=== PATIENT | male | born 1960 | race Caucasian/White ===

== ENCOUNTER 2016-08-27 19:29 | Inpatient (IN) | payer BC ==
--- NOTE | ~2016-08-27 | CN ---
Consultation Report [place] [id number] [facility] [place]. [address] NAME: ED WATT : 60 STATUS : ADM Poornima PAT#: [id number] AGE: 56 ADM/REG DATE : 08/27/16 MR#: [id number] REPORT SERV DATE: 08/28/16 DICTATED BY: FRANKLIN SANTIAGO DATE: 08/28/16 REPORT STATUS : Draft TRANSCRIBED BY: MODL DATE: 08/28/16 CARDIOLOGY CONSULT DATE OF CONSULTATION: INDICATION: Liy-AB-htzdnzpoz NH. HISTORY OF PRESENT ILLNESS: Mr. Watt is a 56-year-old male who is being admitted by the Hospitalist Service for chest pain and shortness of breath with an abnormal troponin, suggestive of ACS/non-STEMI. He has a history of COPD, ongoing tobacco use, hepatitis C virus, and is disabled due to chronic back pain. He has had several instances in the past of anginal-type chest pain with a precordial tightness described as a "bandlike" chest discomfort. This is associated with dyspnea and some stabbing back pain. This is very different than his chronic pain. Previous ER evaluations have been unremarkable with symptoms resolved with treatment of COPD. At this time symptoms have ultimately resolved with sublingual nitroglycerin. Initial ECG was unremarkable. His initial troponin was 0.09 and has trended up to 0.6. He is now resting comfortably with no recurrent chest pain. He has had no palpitations or syncope. He denies orthopnea or edema. REVIEW OF SYSTEMS: Pertinent positives and negatives are as outlined above, all else negative. PAST MEDICAL HISTORY: 1. COPD. 2. Tobacco use. 3. Chronic pain, disabled. FAMILY HISTORY: 1. Ischemic heart disease. 2. Hepatitis C virus. CURRENT HOME MEDICATIONS: 1. Celexa 40 mg daily. 2. Katrina 60 mg every 12 hours. 3. Percocet p.r.n. ALLERGIES: TORADOL WITH RASH AND PENICILLIN WITH RASH. SOCIAL HISTORY: Mr. Watt is disabled with chronic back pain. He has ongoing tobacco use at one-half pack per day. He does not consume alcohol or illegal drugs. FAMILY HISTORY: Significant for CAD. PHYSICAL EXAMINATION: Consultation Report [address] [place]. [address] NAME: ED WATT : 60 STATUS : ADM Poornima PAT#: [id number] AGE: 56 ADM/REG DATE : 08/27/16 MR#: [id number] REPORT SERV DATE: 08/28/16 DICTATED BY: FRANKLIN SANTIAGO DATE: 08/28/16 REPORT STATUS : Draft TRANSCRIBED BY: EARNEST DATE: 08/28/16 VITALS: Temperature is 98.1, pulse 67, respirations 16, blood pressure 110/70. MENTAL STATUS: Awake, alert, and oriented x3. PSYCH: Euthymic, normal affect. GENERAL: Well appearing and in no distress. HEENT: Sclerae anicteric, mucous membranes moist and without lesions. NECK: No jugular venous distention. No hepatojugular reflux, carotid upstrokes 2+ and symmetric, there are no carotid or subclavian bruit. LUNGS: Clear to auscultation without wheezes, crackles, or rales. CARDIOVASCULAR: Regular with normal S1 and S2, no murmurs, no S3 or S4, no parasternal lift, PMI is nondisplaced and nonsustained. ABDOMEN: Soft and nontender. Bowel sounds positive and normoactive. No hepatomegaly, no masses, no abdominal bruit. PULSES: Radial and dorsalis pedis pulses 2+ and symmetric. EXTREMITIES: Warm and without edema. SKIN: No clubbing or cyanosis, no rashes or lesions. ACCESSORY DATA: Creatinine is 1. BUN 6. Otherwise normal electrolytes. CBC with normal white count, hematocrit 41, platelet count 248. Troponin 0.6 and trending up. TSH normal at 0.5. ECG shows sinus rhythm with no acute ST-T abnormalities. IMPRESSION: 1. Acute coronary syndrome/udw-QC-puwuinkgo myocardial infarction. 2. Chronic obstructive pulmonary disease. 3. Tobacco use, ongoing. 4. Chronic pain, disabled. 5. Family history of ischemic heart disease. 6. Hepatitis C virus. PLAN: Mr. Watt has presentation suggestive of acute coronary syndrome and tkj-HL-akshuovhe NH. He will be kept n.p.o. after midnight for coronary angiography and possible PCI tomorrow. Medical therapy with carvedilol, statin, and aspirin will be initiated. He will start IV heparin drip, no initial bolus as he did receive subcutaneous Lovenox today for DVT prophylaxis which will be discontinued. CONSENT: Risks and benefits of cardiac catheterization were discussed with Mr. Watt today. Risks and benefits include bleeding, infection, vascular access, trauma, allergic reaction to contrast dye, and a 1% chance of major complications such as heart attack and stroke were all covered. After this, informed consent was obtained and he agreed to proceed. CIRILO/EARNEST Franklin Santiago M.D. Consultation Report [address] [address] NAME: ED WATT : 60 STATUS : ADM Poornima PAT#: [id number] AGE: 56 ADM/REG DATE : 08/27/16 MR#: [id number] REPORT SERV DATE: 08/28/16 DICTATED BY: FRANKLIN SANTIAGO DATE: 08/28/16 REPORT STATUS : Draft TRANSCRIBED BY: EARNEST DATE: 08/28/16 / [id number] CC: MD Franklin Dodd M.D.
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
[~2016-08-27 19:29] MED LIST: *DENIES; ASAB PO; CYMBALTA60 PO; KADIANSR30 PO; NEXIUM40 PO; PCET PO; PERCOCET1 TA4 PO; PR25 PO; PT DENIES ANY MEDS; ULTRAM50 PO
[2016-08-27 20:24] LABS: BASOPHILS 0.1 %; BASOPHILS ABSOLUTE 0.01 10/3/uL (0.0-0.16); EOSINOPHILS 2.8 %; EOSINOPHILS ABSOLUTE 0.26 10/3/uL (0.0-0.53); ER CBC TAT 0 Hrs 07 Mins; HEMATOCRIT 41.5 % (40.0-51.0); HEMOGLOBIN 14.7 g/dL (13.6-17.8); IMMATURE GRANULOCYTES 0.1 %; IMMATURE GRANULOCYTES ABSOLUTE 0.01 10/3/uL (0.0-0.11); LYMPHOCYTES 27.2 %; LYMPHOCYTES ABSOLUTE 2.55 10/3/uL (0.67-4.30); MEAN CORPUS HGB CONC 35.4 g/dL (32.0-36.0); MEAN CORPUSCULAR HEMOGLOB 30.9 pg (26.0-34.0); MEAN CORPUSCULAR VOLUME 87.4 fL (80-100); MEAN PLATELET VOLUME 10.9 fL (9.2-13.0); MONOCYTES 6.9 %; MONOCYTES ABSOLUTE 0.65 10/3/uL (0.21-1.20); NEUTROPHILS 62.9 %; NEUTROPHILS ABSOLUTE 5.89 10/3/uL (2.02-8.40); PLATELET COUNT 257 10/3/uL (150-400); RBC DISTRIBUTION WIDTH 13.8 % (12.0-16.0); RED CELL COUNT 4.75 10/6/uL (4.7-6.1); WHITE BLOOD CELLS 9.4 10/3/uL (4.5-10.5)
[2016-08-27 20:25] LABS: MANUAL DIFF NO %
[2016-08-27 20:32] LABS: PARTIAL THROMBO TIME 29.2 SEC (22.5-37.2); PROTIME (NOT ORD) 13.5 SEC (12.0-14.5)
[2016-08-27 20:42] LABS: BUN (BLOOD UREA NITROGEN) 5 MG/DL (6-23); CALCIUM, SERUM 9.1 MG/DL (8.5-10.4); CHLORIDE, SERUM 97 MMOL/L (96-112); CO2 (CARBON DIOXIDE) 29 MMOL/L (24-34); CREATININE 0.93 MG/DL (0.70-1.30); GFR AFRICAN AMERICAN 106 ML/MIN (>=60); GFR NON AFRICAN AMERICAN 91 ML/MIN (>=60); GLUCOSE, SERUM 94 MG/DL (60-99); POTASSIUM, SERUM 3.8 MMOL/L (3.5-5.3); SODIUM, SERUM 136 MMOL/L (135-148)
[2016-08-27 20:45] LABS: CHEST PAIN PROFILE TAT 0 Hrs 21 Mins; TROPONIN I 0.09 NG/ML (<0.05)
[2016-08-27] MEDS ORDERED: KADIAN60 MG PO ×2 (21:44→21:46)
[2016-08-27] MEDS ORDERED: PERCOCET 10/3251 TAB PO (21:45)
[2016-08-27] MEDS ORDERED: CELEXA40 MG PO (21:46)
[2016-08-28 05:00] LABS: BASOPHILS 0 %; EOSINOPHILS 0 %; HEMATOCRIT 40.9 % (40.0-51.0); HEMOGLOBIN 14.4 g/dL (13.6-17.8); LYMPHOCYTES 9.8 %; LYMPHOCYTES ABSOLUTE 0.74 10/3/uL (0.67-4.30); MEAN CORPUS HGB CONC 35.2 g/dL (32.0-36.0); MEAN CORPUSCULAR HEMOGLOB 30.8 pg (26.0-34.0); MEAN CORPUSCULAR VOLUME 87.4 fL (80-100); MONOCYTES 0.4 %; MONOCYTES ABSOLUTE 0.03 10/3/uL (0.21-1.20); NEUTROPHILS 89.8 %; NEUTROPHILS ABSOLUTE 6.78 10/3/uL (2.02-8.40); PLATELET COUNT 248 10/3/uL (150-400); RBC DISTRIBUTION WIDTH 13.9 % (12.0-16.0); RED CELL COUNT 4.68 10/6/uL (4.7-6.1); WHITE BLOOD CELLS 7.6 10/3/uL (4.5-10.5)
[2016-08-28 05:01] LABS: MANUAL DIFF NO %
[2016-08-28 05:04] LABS: INTERNATIONAL NORMAL RATI 1.1 UNITS (-); PROTIME (NOT ORD) 13.7 SEC (12.0-14.5)
[2016-08-28 05:23] LABS: BUN (BLOOD UREA NITROGEN) 6 MG/DL (6-23); CALCIUM, SERUM 8.8 MG/DL (8.5-10.4); CHLORIDE, SERUM 98 MMOL/L (96-112); CO2 (CARBON DIOXIDE) 26 MMOL/L (24-34); CREATININE 0.99 MG/DL (0.70-1.30); GFR AFRICAN AMERICAN 98 ML/MIN (>=60); GFR NON AFRICAN AMERICAN 85 ML/MIN (>=60); POTASSIUM, SERUM 3.8 MMOL/L (3.5-5.3); SGOT(AST) 29 U/L (5-40); SGPT(ALT) 37 U/L (5-65); SODIUM, SERUM 137 MMOL/L (135-148); TOTAL BILIRUBIN 0.3 MG/DL (0-1.2); TOTAL PROTEIN 7.1 G/DL (6.0-8.5); ULTRASENSITIVE TSH 0.544 MCIU/ML (0.358-3.740)
[2016-08-28 05:25] LABS: ALBUMIN 3.6 G/DL (3.5-5.0); ALKALINE PHOSPHATASE 75 U/L (45-117); GLOBULIN 3.5 G/DL (2.5-4.1); GLUCOSE, SERUM 152 MG/DL (60-99); TROPONIN I 0.58 NG/ML (<0.05)
[2016-08-29 02:11] LABS: BASOPHILS 0 %; EOSINOPHILS 0 %; HEMATOCRIT 38.2 % (40.0-51.0); HEMOGLOBIN 13.5 g/dL (13.6-17.8); IMMATURE GRANULOCYTES 0.3 %; IMMATURE GRANULOCYTES ABSOLUTE 0.06 10/3/uL (0.0-0.11); LYMPHOCYTES 6.3 %; LYMPHOCYTES ABSOLUTE 1.37 10/3/uL (0.67-4.30); MEAN CORPUS HGB CONC 35.3 g/dL (32.0-36.0); MEAN CORPUSCULAR VOLUME 87.6 fL (80-100); MEAN PLATELET VOLUME 10.8 fL (9.2-13.0); MONOCYTES 3.1 %; MONOCYTES ABSOLUTE 0.67 10/3/uL (0.21-1.20); NEUTROPHILS 90.3 %; NEUTROPHILS ABSOLUTE 19.76 10/3/uL (2.02-8.40); PLATELET COUNT 234 10/3/uL (150-400); RBC DISTRIBUTION WIDTH 13.8 % (12.0-16.0); RED CELL COUNT 4.36 10/6/uL (4.7-6.1)
[2016-08-29 02:18] LABS: MANUAL DIFF NO %; WHITE BLOOD CELLS 21.9 10/3/uL (4.5-10.5)
[2016-08-29 02:34] LABS: INTERNATIONAL NORMAL RATI 1.2 UNITS (-); PROTIME (NOT ORD) 15.5 SEC (12.0-14.5)
[2016-08-29 02:57] LABS: BUN (BLOOD UREA NITROGEN) 9 MG/DL (6-23); CALCIUM, SERUM 8.9 MG/DL (8.5-10.4); CHLORIDE, SERUM 98 MMOL/L (96-112); CHOLESTEROL 182 MG/DL (< 200); CO2 (CARBON DIOXIDE) 26 MMOL/L (24-34); CREATININE 0.91 MG/DL (0.70-1.30); GFR AFRICAN AMERICAN 109 ML/MIN (>=60); GFR NON AFRICAN AMERICAN 94 ML/MIN (>=60); GLUCOSE, SERUM 136 MG/DL (60-99); HDL CHOLESTEROL 46 MG/DL (> 39); NON-HDL CHOLESTEROL 136 MG/DL (< 160); POTASSIUM, SERUM 4.3 MMOL/L (3.5-5.3); SODIUM, SERUM 135 MMOL/L (135-148)
[2016-08-29 02:59] LABS: CK-MB 3.5 NG/ML; CPK 158 U/L (0-200); LDL CHOLESTEROL 116 MG/DL (< 130); TRIGLYCERIDE 101 MG/DL (< 150); TROPONIN I 0.38 NG/ML (<0.05)
[2016-08-29 11:51] LABS: CPK 157 U/L (0-200)
[2016-08-29 11:52] LABS: CK-MB 3.5 NG/ML
[2016-08-30 04:47] LABS: BASOPHILS 0.1 %; BASOPHILS ABSOLUTE 0.01 10/3/uL (0.0-0.16); EOSINOPHILS 0 %; HEMOGLOBIN 14.2 g/dL (13.6-17.8); IMMATURE GRANULOCYTES 0.3 %; IMMATURE GRANULOCYTES ABSOLUTE 0.06 10/3/uL (0.0-0.11); LYMPHOCYTES 11.5 %; LYMPHOCYTES ABSOLUTE 2.01 10/3/uL (0.67-4.30); MEAN CORPUS HGB CONC 34.6 g/dL (32.0-36.0); MEAN CORPUSCULAR HEMOGLOB 30.6 pg (26.0-34.0); MEAN CORPUSCULAR VOLUME 88.4 fL (80-100); MEAN PLATELET VOLUME 11.1 fL (9.2-13.0); MONOCYTES 4.5 %; MONOCYTES ABSOLUTE 0.79 10/3/uL (0.21-1.20); NEUTROPHILS 83.6 %; NEUTROPHILS ABSOLUTE 14.65 10/3/uL (2.02-8.40); PLATELET COUNT 238 10/3/uL (150-400); RBC DISTRIBUTION WIDTH 14.1 % (12.0-16.0); RED CELL COUNT 4.64 10/6/uL (4.7-6.1); WHITE BLOOD CELLS 17.5 10/3/uL (4.5-10.5)
[2016-08-30 04:48] LABS: MANUAL DIFF NO %
[2016-08-30 05:07] LABS: BUN (BLOOD UREA NITROGEN) 9 MG/DL (6-23); CALCIUM, SERUM 8.8 MG/DL (8.5-10.4); CHLORIDE, SERUM 98 MMOL/L (96-112); CK-MB 55.9 NG/ML; CO2 (CARBON DIOXIDE) 28 MMOL/L (24-34); CPK 591 U/L (0-200); CREATININE 0.99 MG/DL (0.70-1.30); GFR AFRICAN AMERICAN 98 ML/MIN (>=60); GFR NON AFRICAN AMERICAN 85 ML/MIN (>=60); HDL CHOLESTEROL 44 MG/DL (> 39); SODIUM, SERUM 135 MMOL/L (135-148)
[2016-08-30 05:10] LABS: CHOL/HDL RATIO(NOT ORDER) 3.3 (0-5); CHOLESTEROL 143 MG/DL (< 200); CKMB INDEX (NOT ORD) 9.5; GLUCOSE, SERUM 99 MG/DL (60-99); LDL CHOLESTEROL 70 MG/DL (< 130); NON-HDL CHOLESTEROL 99 MG/DL (< 160); TRIGLYCERIDE 145 MG/DL (< 150)
[2016-08-30 06:53] LABS: PROCALCITONIN <0.05 ng/mL (<0.5)
[2016-08-30 08:58] LABS: CK-MB 38.6 NG/ML
[2016-08-30 09:00] LABS: CKMB INDEX (NOT ORD) 7.6; TROPONIN I 12.6 NG/ML (<0.05)
[2016-08-31 11:48] LABS: BASOPHILS 0.1 %; BASOPHILS ABSOLUTE 0.01 10/3/uL (0.0-0.16); EOSINOPHILS 0.3 %; EOSINOPHILS ABSOLUTE 0.04 10/3/uL (0.0-0.53); HEMATOCRIT 39.1 % (40.0-51.0); HEMOGLOBIN 13.9 g/dL (13.6-17.8); IMMATURE GRANULOCYTES 0.3 %; IMMATURE GRANULOCYTES ABSOLUTE 0.04 10/3/uL (0.0-0.11); LYMPHOCYTES 13.9 %; MEAN CORPUS HGB CONC 35.5 g/dL (32.0-36.0); MEAN CORPUSCULAR HEMOGLOB 30.8 pg (26.0-34.0); MEAN CORPUSCULAR VOLUME 86.7 fL (80-100); MEAN PLATELET VOLUME 10.6 fL (9.2-13.0); MONOCYTES 5.3 %; MONOCYTES ABSOLUTE 0.77 10/3/uL (0.21-1.20); NEUTROPHILS 80.1 %; NEUTROPHILS ABSOLUTE 11.58 10/3/uL (2.02-8.40); PLATELET COUNT 210 10/3/uL (150-400); RBC DISTRIBUTION WIDTH 13.9 % (12.0-16.0); RED CELL COUNT 4.51 10/6/uL (4.7-6.1); WHITE BLOOD CELLS 14.4 10/3/uL (4.5-10.5)
[2016-08-31 11:49] LABS: MANUAL DIFF NO %
[2016-08-31 12:09] LABS: ALBUMIN 3.1 G/DL (3.5-5.0); BUN (BLOOD UREA NITROGEN) 10 MG/DL (6-23); CALCIUM, SERUM 8.8 MG/DL (8.5-10.4); CHLORIDE, SERUM 98 MMOL/L (96-112); CO2 (CARBON DIOXIDE) 25 MMOL/L (24-34); GFR AFRICAN AMERICAN 116 ML/MIN (>=60); GFR NON AFRICAN AMERICAN 100 ML/MIN (>=60); GLUCOSE, SERUM 116 MG/DL (60-99); POTASSIUM, SERUM 3.3 MMOL/L (3.5-5.3); SODIUM, SERUM 131 MMOL/L (135-148)
[2016-08-31] MEDS ORDERED: PRIN2.5 PO (14:20)
[2016-08-31] MEDS ORDERED: PLAVIX PO (14:21)
[2016-08-31] MEDS ORDERED: ASAB PO (14:21)
[2016-08-31] MEDS ORDERED: LIPITOR40 PO (14:22)
[2016-08-31] MEDS ORDERED: NITROQUICK0.4 MG SL (14:23)
[2016-08-31] MEDS ORDERED: COREG3 PO (14:23)
== END 2016-08-31 15:54 | disposition home or self-care (01) | DRG 247 ==
LOC: ER 19:29 → 7NO 22:22 → SSU1 08-29 11:45 → 6NO 08-30 23:28
PROVIDERS: Emergency Medicine; Hospitalist; Internal Medicine Cardiovascular Disease
PROC: 027034Z Dilation of Coronary Artery, One Artery with Drug-eluting Intraluminal Device, Percutaneous Approach (ICD-10-PCS; principal; 2016-08-29)
PROC: 4A023N7 Measurement of Cardiac Sampling and Pressure, Left Heart, Percutaneous Approach (ICD-10-PCS; 2016-08-29)
PROC: B2111ZZ Fluoroscopy of Multiple Coronary Arteries using Low Osmolar Contrast (ICD-10-PCS; 2016-08-29)
PROC: B2151ZZ Fluoroscopy of Left Heart using Low Osmolar Contrast (ICD-10-PCS; 2016-08-29)
PROC: 4A023N7 Measurement of Cardiac Sampling and Pressure, Left Heart, Percutaneous Approach (ICD-10-PCS; 2016-08-30)
PROC: B2111ZZ Fluoroscopy of Multiple Coronary Arteries using Low Osmolar Contrast (ICD-10-PCS; 2016-08-30)
DX: I21.4 Non-ST elevation (NSTEMI) myocardial infarction (principal); F11.20 Opioid dependence, uncomplicated; J44.1 Chronic obstructive pulmonary disease with (acute) exacerbation; I25.10 Atherosclerotic heart disease of native coronary artery without angina pectoris; M54.9 Dorsalgia, unspecified; G89.4 Chronic pain syndrome; B19.20 Unspecified viral hepatitis C without hepatic coma; Z72.0 Tobacco use; Z82.49 Family history of ischemic heart disease and other diseases of the circulatory system
CPT/HCPCS: 71010; 71275; 80048; 80053; 80061; 80069; 82550; 82553; 83735; 83880; 84145; 84443; 84484; 85025; 85610; 85730; 87449; 93005; 93458; 94640; 96374; 99152; 99153; 99285; A9270-GY; C1713; C1725; C1760; C1769; C1874; C1894; C8929; C9600; J0583; J2250; J2405; J2920; J2930; J3010; Q9957; Q9967

== ENCOUNTER 2016-09-06 18:14 | Emergency (ER) | payer BC ==
[~2016-09-06 18:14] MED LIST changes: +CELEXA40 MG PO; +COREG3 PO; +KADIAN60 MG PO; +LIPITOR40 PO; +NITROQUICK0.4 MG SL; +PERCOCET 10/3251 TAB PO; +PLAVIX PO; +PRIN2.5 PO
[2016-09-06 19:17] LABS: BASOPHILS 0.1 %; BASOPHILS ABSOLUTE 0.01 10/3/uL (0.0-0.16); EOSINOPHILS 1.3 %; EOSINOPHILS ABSOLUTE 0.13 10/3/uL (0.0-0.53); ER CBC TAT 0 Hrs 05 Mins; HEMATOCRIT 36.9 % (40.0-51.0); HEMOGLOBIN 13.2 g/dL (13.6-17.8); IMMATURE GRANULOCYTES 0.2 %; IMMATURE GRANULOCYTES ABSOLUTE 0.02 10/3/uL (0.0-0.11); LYMPHOCYTES ABSOLUTE 2.01 10/3/uL (0.67-4.30); MANUAL DIFF NO %; MEAN CORPUS HGB CONC 35.8 g/dL (32.0-36.0); MEAN CORPUSCULAR HEMOGLOB 30.8 pg (26.0-34.0); MEAN PLATELET VOLUME 9.1 fL (9.2-13.0); MONOCYTES 7.7 %; MONOCYTES ABSOLUTE 0.77 10/3/uL (0.21-1.20); NEUTROPHILS 70.7 %; NEUTROPHILS ABSOLUTE 7.11 10/3/uL (2.02-8.40); PLATELET COUNT 375 10/3/uL (150-400); RBC DISTRIBUTION WIDTH 13.9 % (12.0-16.0); RED CELL COUNT 4.29 10/6/uL (4.7-6.1); WHITE BLOOD CELLS 10.1 10/3/uL (4.5-10.5)
[2016-09-06 19:25] LABS: INTERNATIONAL NORMAL RATI 1.2 UNITS (-); PARTIAL THROMBO TIME 38.8 SEC (22.5-37.2); PROTIME (NOT ORD) 15.3 SEC (12.0-14.5)
[2016-09-06 19:36] LABS: ALBUMIN 2.8 G/DL (3.5-5.0); CALCIUM, SERUM 9.3 MG/DL (8.5-10.4); CHLORIDE, SERUM 89 MMOL/L (96-112); CREATININE 0.85 MG/DL (0.70-1.30); DIRECT BILIRUBIN 0.1 MG/DL (0.0-0.4); GFR AFRICAN AMERICAN 113 ML/MIN (>=60); GFR NON AFRICAN AMERICAN 97 ML/MIN (>=60); GLUCOSE, SERUM 99 MG/DL (60-99); INDIRECT BILIRUBIN(NOT ORDER) 0.2 MG/DL (0.1-0.9); POTASSIUM, SERUM 3.2 MMOL/L (3.5-5.3); SGOT(AST) 32 U/L (5-40); SGPT(ALT) 32 U/L (5-65); SODIUM, SERUM 132 MMOL/L (135-148); TOTAL BILIRUBIN 0.3 MG/DL (0-1.2); TOTAL PROTEIN 7.5 G/DL (6.0-8.5)
[2016-09-06 19:38] LABS: ALKALINE PHOSPHATASE 89 U/L (45-117); BUN (BLOOD UREA NITROGEN) 4 MG/DL (6-23); CO2 (CARBON DIOXIDE) 34 MMOL/L (24-34)
[2016-09-06 19:39] LABS: CHEST PAIN PROFILE TAT 0 Hrs 27 Mins; TROPONIN I 0.25 NG/ML (<0.05)
== END 2016-09-06 23:13 | disposition home or self-care (01) ==
LOC: ER 18:14
PROVIDERS: Specialist
DX: E86.9 Volume depletion, unspecified (principal); F32.9 Major depressive disorder, single episode, unspecified; Z87.891 Personal history of nicotine dependence; Z90.49 Acquired absence of other specified parts of digestive tract; Z88.0 Allergy status to penicillin; Z88.8 Allergy status to other drugs, medicaments and biological substances; Z79.82 Long term (current) use of aspirin; Z79.899 Other long term (current) drug therapy
CPT/HCPCS: 71010; 80048; 80076; 83690; 83735; 84484; 85025; 85610; 85730; 93005; 96374; 96375; 99285; A9270-GY; J2405; J2550